=== PATIENT | male | born 1995 | race African-American/Black ===

== ENCOUNTER 2018-09-14 09:45 | Emergency (ER) | payer OTHER ==
[~2018-09-14] VITALS: Ht 185.4 cm; Wt 65.8 kg
[2018-09-14 10:06] LABS: URINE CLARITY CLOUDY; URINE COLOR DK YELLOW; URINE PROTEIN (DIPSTICK) 1+ (Negative)
[2018-09-14 10:07] LABS: ICTOTEST (BILI CONFIRMATORY) Negative (Negative); URINE BILIRUBIN NEGATIVE (Negative); URINE BLOOD 1+ (Negative); URINE GLUCOSE-RANDOM* NEGATIVE (Negative); URINE KETONES 2+ (Negative); URINE LEUKOCYTES-REFLEX 2+ (Negative); URINE NITRITE-REFLEX NEGATIVE (Negative); URINE UROBILINOGEN 0.2 E.U./dl (0.2-1.0)
[2018-09-14 10:19] LABS: CASTS None Seen /LPF (None Seen); MUCUS >6 Heavy strn/LPF (None Seen); SQUAMOUS 0-3 Few /LPF (0-3)
[2018-09-14 10:20] LABS: URINE WBC-REFLEX >25 Many /HPF (0-5)
[2018-09-14 10:21] LABS: BACTERIA-REFLEX 1-9 Few /HPF (None Seen); CRYSTALS None Seen /LPF (None Seen); URINE RBC 0-2 Rare /HPF (0-2)
[2018-09-14] MEDS ORDERED: NORCO 5-325 TA1 EACH PO (11:37)
[2018-09-14] MEDS ORDERED: DOXYCYCLINE 10100 MG PO (11:37)
[2018-09-14 11:55] VITALS: BP 120/74
== END 2018-09-14 12:03 | disposition home or self-care (01) ==
LOC: ER 09:45
PROVIDERS: Physician Assistant
DX: N45.1 Epididymitis (principal); F17.210 Nicotine dependence, cigarettes, uncomplicated

== ENCOUNTER 2020-01-23 17:55 | Emergency (ER) | payer OTHER ==
[~2020-01-23] VITALS: Ht 182.9 cm; Wt 64.9 kg
[~2020-01-23 17:55] MED LIST: DOXYCYCLINE 10100 MG PO; NORCO 5-325 TA1 EACH PO
[2020-01-23] MEDS ORDERED: MOBIC7.5 MG PO (18:47)
[2020-01-23 19:25] VITALS: BP 106/74
== END 2020-01-23 19:35 | disposition home or self-care (01) ==
LOC: ER 17:55
DX: R07.89 Other chest pain (principal); F17.210 Nicotine dependence, cigarettes, uncomplicated; X50.0XXA Overexertion from strenuous movement or load, initial encounter; Y93.89 Activity, other specified; Y92.89 Other specified places as the place of occurrence of the external cause; Y99.8 Other external cause status